=== PATIENT | male | born 1930 | race Caucasian/White ===

== ENCOUNTER → 2019-06-24 | Outpatient (CLI) | payer MEDICARE | END | disposition home or self-care (01) | LOC: RAH 13:05 | PROVIDERS: ATTEND Neurological Surgery | DX: M47.816 Spondylosis without myelopathy or radiculopathy, lumbar region (principal); M48.062 Spinal stenosis, lumbar region with neurogenic claudication; M85.88 Other specified disorders of bone density and structure, other site; M41.86 Other forms of scoliosis, lumbar region | CPT/HCPCS: 72114; 72148 ==